=== PATIENT | female | born 1950 | race Caucasian/White ===

== ENCOUNTER 2016-09-26 11:49 | Emergency (ER) | payer MEDICARE | END 2016-09-26 15:30 | disposition home or self-care (01) | LOC: D.ER 11:49 | DX: T84.89XA Other specified complication of internal orthopedic prosthetic devices, implants and grafts, initial encounter (principal); M06.9 Rheumatoid arthritis, unspecified ==

== ENCOUNTER 2016-10-17 18:12 | Emergency (ER) | payer MEDICARE ==
[2016-10-17 20:00] LABS: BASOPHILS 0.2 % (0-2); EOSINOPHILS 0.7 % (0-7); HEMATOCRIT 36.4 % (36.0-48.0); HEMOGLOBIN 11.6 g/dL (12-16); IMMATURE GRANULOCYTES 0.5 % (0-5); LYMPHOCYTES 38.7 % (15-50); MCH 30.7 pg (26.0-34.0); MCHC 31.9 g/dL (31.0-37.0); MCV 96.3 fL (80.0-100.0); MEAN PLATELET VOLUME 10.1 fL (7.4-10.4); MONOCYTES 8.2 % (2-11); NEUTROPHILS 51.7 % (40-80); PLATELET COUNT 147 10x3/uL (130-400); RBC 3.78 10x6/uL (4.00-5.40); RDW 16.2 % (11.5-14.5); WBC 4.3 10x3/uL (4.8-10.8)
[2016-10-17 20:18] LABS: ALBUMIN 3.9 g/dL (3.4-5.0); ANION GAP 12.9 mmol/L (8-16); BILIRUBIN - TOTAL 0.8 mg/dL (0.2-1.3); CALCIUM 8.8 mg/dL (8.5-10.1); CARBON DIOXIDE 23.9 mmol/L (21.0-32.0); CREATININE - SERUM 0.9 mg/dL (0.6-1.3); POTASSIUM - SERUM 3.8 mmol/L (3.5-5.1); PROTEIN - SERUM 6.8 g/dL (6.4-8.2)
== END 2016-10-17 21:24 | disposition home or self-care (01) ==
LOC: D.ER 18:12
PROVIDERS: Physician Assistant Medical
DX: E11.649 Type 2 diabetes mellitus with hypoglycemia without coma (principal); F17.200 Nicotine dependence, unspecified, uncomplicated; J45.909 Unspecified asthma, uncomplicated; M06.9 Rheumatoid arthritis, unspecified

== ENCOUNTER 2017-03-19 14:05 | Emergency (ER) | payer MEDICARE, MEDICAID ==
[2017-03-19 14:55] LABS: BASOPHILS 0.2 % (0-2); EOSINOPHILS 0.4 % (0-7); HEMATOCRIT 37.3 % (36.0-48.0); IMMATURE GRANULOCYTES 0.4 % (0-5); LYMPHOCYTES 33.3 % (15-50); MCHC 32.2 g/dL (31.0-37.0); MCV 96.4 fL (80.0-100.0); MEAN PLATELET VOLUME 10.8 fL (7.4-10.4); MONOCYTES 7.2 % (2-11); NEUTROPHILS 58.5 % (40-80); PLATELET COUNT 131 10x3/uL (130-400); RBC 3.87 10x6/uL (4.00-5.40); RDW 14.1 % (11.5-14.5)
[2017-03-19 15:12] LABS: ALBUMIN 3.8 g/dL (3.4-5.0); ANION GAP 16.7 mmol/L (8-16); BILIRUBIN - TOTAL 0.58 mg/dL (0.2-1.3); CALCIUM 8.8 mg/dL (8.5-10.1); CARBON DIOXIDE 23.8 mmol/L (21.0-32.0); CREATININE - SERUM 0.9 mg/dL (0.6-1.3); MAGNESIUM - SERUM 2.1 mg/dL (1.8-2.4); POTASSIUM - SERUM 4.5 mmol/L (3.5-5.1); PROTEIN - SERUM 7.5 g/dL (6.4-8.2)
== END 2017-03-19 16:29 | disposition home or self-care (01) ==
LOC: D.ER 14:05
PROVIDERS: Family Medicine
DX: R42 Dizziness and giddiness (principal); J01.90 Acute sinusitis, unspecified; I10 Essential (primary) hypertension

== ENCOUNTER 2017-04-22 13:00 | Emergency (ER) | payer MEDICARE ==
[2017-04-22 16:02] LABS: BASOPHILS 0.2 % (0-2); EOSINOPHILS 1.2 % (0-7); HEMATOCRIT 37.7 % (36.0-48.0); IMMATURE GRANULOCYTES 0.2 % (0-5); LYMPHOCYTES 31.6 % (15-50); MCH 30.9 pg (26.0-34.0); MCHC 31.8 g/dL (31.0-37.0); MCV 97.2 fL (80.0-100.0); MEAN PLATELET VOLUME 10.6 fL (7.4-10.4); MONOCYTES 8.3 % (2-11); NEUTROPHILS 58.5 % (40-80); PLATELET COUNT 105 10x3/uL (130-400); RBC 3.88 10x6/uL (4.00-5.40); RDW 14.1 % (11.5-14.5); WBC 4.3 10x3/uL (4.8-10.8)
[2017-04-22 16:07] LABS: ALBUMIN 3.9 g/dL (3.4-5.0); ALKALINE PHOSPHATASE 59 U/L (46-116); ALT (SGPT) 27 U/L (10-68); BILIRUBIN - TOTAL 0.45 mg/dL (0.2-1.3); CALC OSMOLALITY 280 mosm/kg (275-300); CALCIUM 9.5 mg/dL (8.5-10.1); CARBON DIOXIDE 25.6 mmol/L (21.0-32.0); CHLORIDE - SERUM 103 mmol/L (98-107); CREATININE - SERUM 0.9 mg/dL (0.6-1.3); GLUCOSE 95 mg/dL (74-106); POTASSIUM - SERUM 4.6 mmol/L (3.5-5.1); PROTEIN - SERUM 7.5 g/dL (6.4-8.2); SODIUM 140 mmol/L (136-145); UREA NITROGEN 17 mg/dL (7-18); eGFR NON AFRICAN AMERICAN 67 mL/min (90-120)
[2017-04-22 16:15] LABS: CREATINE KINASE 98 UL (21-215); MAGNESIUM - SERUM 2.9 mg/dL (1.8-2.4); PRO BNP 39 pg/mL (0-125)
[2017-04-22 16:16] LABS: TROPONIN-I < 0.017 ng/mL (0.000-0.060)
== END 2017-04-22 16:25 | disposition home or self-care (01) ==
LOC: D.ER 13:00
PROVIDERS: Emergency Medicine
DX: R55 Syncope and collapse (principal); I10 Essential (primary) hypertension

== ENCOUNTER 2017-08-03 20:11 | Emergency (ER) | payer MEDICARE | END 2017-08-04 01:43 | disposition home or self-care (01) | LOC: D.ER 20:11 | DX: M54.2 Cervicalgia (principal); I10 Essential (primary) hypertension ==

== ENCOUNTER 2017-09-22 16:19 | Emergency (ER) | payer MEDICARE ==
[~2017-09-22] VITALS: Ht 162.6 cm; Wt 79.1 kg
[2017-09-22 16:48] VITALS: Ht 162.6 cm; Wt 79.1 kg
[2017-09-22] MEDS ORDERED: PREDNISONE1 MG PO (16:50)
[2017-09-22] MEDS ORDERED: NORVASC10 MG PO (16:51)
[2017-09-22] MEDS ORDERED: FOLIC ACID1 MG PO (16:51)
[2017-09-22] MEDS ORDERED: PLAQUENIL200 MG PO (16:52)
[2017-09-22] MEDS ORDERED: PRINIVIL20 MG PO (16:53)
[2017-09-22] MEDS ORDERED: IPRAT-ALBUT 0.5-3 ML UPD (16:53)
[2017-09-22] MEDS ORDERED: VENTOLIN HFA18 GM INH (16:56)
[2017-09-22] MEDS ORDERED: METHOTREXATE2.5 MG (16:56)
[2017-09-22 19:19] LABS: BASOPHILS 0.4 % (0-2); EOSINOPHILS 0.8 % (0-7); HEMATOCRIT 37.4 % (36.0-48.0); IMMATURE GRANULOCYTES 0.6 % (0-5); LYMPHOCYTES 29.7 % (15-50); MCH 29.2 pg (26.0-34.0); MCHC 32.1 g/dL (31.0-37.0); MEAN PLATELET VOLUME 10.6 fL (7.4-10.4); NEUTROPHILS 57.5 % (40-80); RBC 4.11 10x6/uL (4.00-5.40); RDW 14.6 % (11.5-14.5); WBC 5.2 10x3/uL (4.8-10.8)
[2017-09-22 19:25] LABS: PLATELET COUNT 229 10x3/uL (130-400)
[2017-09-22 19:27] LABS: ALBUMIN 3.7 g/dL (3.4-5.0); ANION GAP 13.5 mmol/L (8-16); BILIRUBIN - TOTAL 0.56 mg/dL (0.2-1.3); CALCIUM 9.6 mg/dL (8.5-10.1); CARBON DIOXIDE 26.9 mmol/L (21.0-32.0); MAGNESIUM - SERUM 2.4 mg/dL (1.8-2.4); POTASSIUM - SERUM 3.4 mmol/L (3.5-5.1); PROTEIN - SERUM 8.2 g/dL (6.4-8.2)
[2017-09-22 19:48] LABS: UDS - AMPHET NEGATIVE QUAL (NEGATIVE); UDS - BARB NEGATIVE QUAL (NEGATIVE); UDS - BENZO NEGATIVE QUAL (NEGATIVE); UDS - COCAINE NEGATIVE QUAL (NEGATIVE); UDS - OPIATE POSITIVE QUAL (NEGATIVE); UDS - PCP NEGATIVE QUAL (NEGATIVE); UDS - THC NEGATIVE QUAL (NEGATIVE)
[2017-09-22 20:15] LABS: APPEARANCE CLEAR (CLEAR); BILIRUBIN NEGATIVE (NEGATIVE); COLOR YELLOW (YELLOW); GLUCOSE NEGATIVE (NEGATIVE); KETONE NEGATIVE (NEGATIVE); NITRITE NEGATIVE (NEGATIVE); PROTEIN NEGATIVE (NEGATIVE); UROBILINOGEN NORMAL (NORMAL)
[2017-09-23 05:01] VITALS: BP 126/79
== END 2017-09-22 20:50 | disposition home or self-care (01) ==
LOC: D.ER 16:19
PROVIDERS: Family Medicine
DX: R53.83 Other fatigue (principal); I10 Essential (primary) hypertension

== ENCOUNTER 2017-12-25 19:51 | Emergency (ER) | payer MEDICARE ==
[~2017-12-25] VITALS: Ht 162.6 cm; Wt 72.7 kg
[~2017-12-25 19:51] MED LIST: FOLIC ACID1 MG PO; IPRAT-ALBUT 0.5-3 ML UPD; METHOTREXATE2.5 MG; NORVASC10 MG PO; PLAQUENIL200 MG PO; PREDNISONE1 MG PO; PRINIVIL20 MG PO; VENTOLIN HFA18 GM INH
[2017-12-25 19:53] VITALS: Ht 162.6 cm; Wt 72.7 kg
[2017-12-25 21:46] LABS: ALBUMIN 3.6 g/dL (3.4-5.0); ALKALINE PHOSPHATASE 68 U/L (46-116); ALT (SGPT) 25 U/L (10-68); BILIRUBIN - TOTAL 0.62 mg/dL (0.2-1.3); CALC OSMOLALITY 278 mosm/kg (275-300); CALCIUM 8.6 mg/dL (8.5-10.1); CARBON DIOXIDE 21.7 mmol/L (21.0-32.0); CHLORIDE - SERUM 104 mmol/L (98-107); CREATININE - SERUM 1.1 mg/dL (0.6-1.3); GLUCOSE 91 mg/dL (74-106); POTASSIUM - SERUM 3.8 mmol/L (3.5-5.1); PROTEIN - SERUM 6.8 g/dL (6.4-8.2); SODIUM 140 mmol/L (136-145); UREA NITROGEN 12 mg/dL (7-18); eGFR NON AFRICAN AMERICAN 53 mL/min (90-120)
[2017-12-25 22:02] LABS: BASOPHILS 0.2 % (0-2); EOSINOPHILS 0.5 % (0-7); HEMATOCRIT 37.8 % (36.0-48.0); HEMOGLOBIN 11.8 g/dL (12-16); IMMATURE GRANULOCYTES 0.3 % (0-5); LYMPHOCYTES 22.1 % (15-50); MCH 30.2 pg (26.0-34.0); MCHC 31.2 g/dL (31.0-37.0); MCV 96.7 fL (80.0-100.0); MEAN PLATELET VOLUME 10.6 fL (7.4-10.4); MONOCYTES 6.2 % (2-11); NEUTROPHILS 70.7 % (40-80); PLATELET COUNT 134 10x3/uL (130-400); RBC 3.91 10x6/uL (4.00-5.40); RDW 16.1 % (11.5-14.5); WBC 9.7 10x3/uL (4.8-10.8)
[2017-12-25 22:03] LABS: CKMB 1.7 U/L (0.0-3.6); CREATINE KINASE 336 UL (21-215); TROPONIN-I 0.028 ng/mL (0.000-0.060)
[2017-12-26 03:44] VITALS: BP 145/97
== END 2017-12-26 03:35 | disposition other institution (70) ==
LOC: D.ER 19:51
PROVIDERS: Family Medicine
DX: G40.909 Epilepsy, unspecified, not intractable, without status epilepticus (principal); I10 Essential (primary) hypertension

== ENCOUNTER 2020-08-28 12:32 | Inpatient (IN) | payer MEDICARE ==
[~2020-08-28] VITALS: Ht 162.6 cm; Wt 87.1 kg
[2020-08-28 13:04] LABS: BASOPHILS 1.3 % (0-2); EOSINOPHILS 0.8 % (0-7); HEMATOCRIT 36.3 % (36.0-48.0); HEMOGLOBIN 11.5 g/dL (12-16); LYMPHOCYTES 29.5 % (15-50); MCH 28.6 pg (26.0-34.0); MCHC 31.7 g/dL (31.0-37.0); MCV 90.2 fL (80.0-100.0); MEAN PLATELET VOLUME 8.4 fL (7.4-10.4); MONOCYTES 6.5 % (2-11); NEUTROPHILS 61.9 % (40-80); RBC 4.03 10x6/uL (4.00-5.40); RDW 15.7 % (11.5-14.5); WBC 5.1 10x3/uL (4.8-10.8)
[2020-08-28 13:05] LABS: PLATELET COUNT 167 10x3/uL (130-400)
[2020-08-28 13:09] LABS: CALC OSMOLALITY 283 mosm/kg (275-300); CALCIUM 8.6 mg/dL (8.5-10.1); CARBON DIOXIDE 27.1 mmol/L (21.0-32.0); CHLORIDE - SERUM 106 mmol/L (98-107); CREATININE - SERUM 0.9 mg/dL (0.6-1.3); GLUCOSE 111 mg/dL (74-106); POTASSIUM - SERUM 3.7 mmol/L (3.5-5.1); SODIUM 142 mmol/L (136-145); UREA NITROGEN 12 mg/dL (7-18); eGFR NON AFRICAN AMERICAN 66 mL/min (90-120)
[2020-08-28 13:14] LABS: APTT 34.5 SECONDS (22.8-39.4); INR 1.07 (0.85-1.17); PROTIME 12.9 SECONDS (11.6-15.0)
[2020-08-28 13:26] LABS: ALBUMIN 3.5 g/dL (3.4-5.0); ALKALINE PHOSPHATASE 74 U/L (30-120); ALT (SGPT) 25 U/L (10-68); BILIRUBIN - TOTAL 0.49 mg/dL (0.2-1.3); CKMB 0.5 U/L (0.0-3.6); CREATINE KINASE 159 UL (21-215); MAGNESIUM - SERUM 2.2 mg/dL (1.8-2.4); TROPONIN-I < 0.017 ng/mL (0.000-0.060)
[2020-08-28 15:29] VITALS: BP 159/70
[2020-08-28 17:15] LABS: CKMB 0.5 U/L (0.0-3.6); CREATINE KINASE 155 UL (21-215)
[2020-08-28 17:16] LABS: TROPONIN-I < 0.017 ng/mL (0.000-0.060)
[2020-08-28] MEDS ORDERED: KEPPRA500 MG PO (17:49)
[2020-08-28] MEDS ORDERED: LIPITOR40 MG PO (17:50)
[2020-08-28] MEDS ORDERED: PREDNISONE5 MG PO (17:52)
--- NOTE | 2020-08-28 18:50 | NUR ---
PERICARE AND DIAPER CHANGE PERFORMED AT THIS TIME.
[2020-08-28 21:49] VITALS: BP 187/64; BMI 33.0
[2020-08-29] VITALS: BP 161/79
[2020-08-29 00:54] LABS: CKMB 0.5 U/L (0.0-3.6); CREATINE KINASE 155 UL (21-215)
[2020-08-29 00:55] LABS: TROPONIN-I < 0.017 ng/mL (0.000-0.060)
[2020-08-29 07:34] LABS: BASOPHILS 1.3 % (0-2); EOSINOPHILS 2.2 % (0-7); HEMATOCRIT 35.4 % (36.0-48.0); HEMOGLOBIN 11.3 g/dL (12-16); LYMPHOCYTES 40.1 % (15-50); MCH 28.8 pg (26.0-34.0); MEAN PLATELET VOLUME 7.5 fL (7.4-10.4); MONOCYTES 9.5 % (2-11); NEUTROPHILS 46.9 % (40-80); RBC 3.94 10x6/uL (4.00-5.40); RDW 15.8 % (11.5-14.5); WBC 5.5 10x3/uL (4.8-10.8)
[2020-08-29 07:36] LABS: PLATELET COUNT 212 10x3/uL (130-400)
[2020-08-29 07:52] VITALS: BP 142/67
--- NOTE | 2020-08-29 09:10 | NUR ---
AM MEDS GIVEN AT THIS TIME WITH A LITTLE BIT OF WATER. ALSO GAVE 650MG OF TYLENOL FOR PAIN LEVEL OF 5/10. PT TOOK OWN [facility] MEDICATIONS STATES TAHT SHE CANNOT MISS A DOSE. PT A/O X4, RESP EVEN AND NONLABORED ON RA. SR-84 ON TELE. PT REFUSES TO WEAR SCDS, RATIONAL FOR SCDS EXPLAINED TO PT. ALL NEEDS MET, CALL LIGHT IN REACH, WILL CONTINUE PLAN OF CARE.
[2020-08-29 09:12] VITALS: BMI 32.9
[2020-08-29 09:52] LABS: CKMB 0.4 U/L (0.0-3.6); CREATINE KINASE 122 UL (21-215)
[2020-08-29 09:54] LABS: TROPONIN-I < 0.017 ng/mL (0.000-0.060)
[2020-08-29 10:08] LABS: ALBUMIN 3.3 g/dL (3.4-5.0); ALKALINE PHOSPHATASE 66 U/L (30-120); ALT (SGPT) 22 U/L (10-68); BILIRUBIN - TOTAL 0.65 mg/dL (0.2-1.3); CALC OSMOLALITY 279 mosm/kg (275-300); CALCIUM 8.4 mg/dL (8.5-10.1); CARBON DIOXIDE 25.4 mmol/L (21.0-32.0); CHLORIDE - SERUM 105 mmol/L (98-107); CREATININE - SERUM 0.8 mg/dL (0.6-1.3); GLUCOSE 77 mg/dL (74-106); MAGNESIUM - SERUM 2.1 mg/dL (1.8-2.4); POTASSIUM - SERUM 3.3 mmol/L (3.5-5.1); PROTEIN - SERUM 6.4 g/dL (6.4-8.2); SODIUM 141 mmol/L (136-145); UREA NITROGEN 13 mg/dL (7-18); eGFR NON AFRICAN AMERICAN 75 mL/min (90-120)
[2020-08-29 10:54] VITALS: Ht 162.6 cm; Wt 87.1 kg
[2020-08-29 11:11] VITALS: BP 114/69
--- NOTE | 2020-08-29 15:13 | NUR ---
PT RESTING COMFORTABLY IN BED WITH EYES CLOSED, NAD NOTED. CALL LIGHT IN REACH.
[2020-08-29 15:47] VITALS: BP 127/61
[2020-08-29 20:00] VITALS: BP 120/52
[2020-08-30 00:23] VITALS: BP 145/60
[2020-08-30 04:09] VITALS: BP 122/51
[2020-08-30 06:07] LABS: EOSINOPHILS 2.5 % (0-7); HEMATOCRIT 34.2 % (36.0-48.0); LYMPHOCYTES 44.5 % (15-50); MCH 28.9 pg (26.0-34.0); MCHC 32.2 g/dL (31.0-37.0); MCV 89.9 fL (80.0-100.0); MEAN PLATELET VOLUME 8.4 fL (7.4-10.4); MONOCYTES 10.3 % (2-11); NEUTROPHILS 41.7 % (40-80); PLATELET COUNT 202 10x3/uL (130-400); RBC 3.81 10x6/uL (4.00-5.40); RDW 16.1 % (11.5-14.5); WBC 4.6 10x3/uL (4.8-10.8)
[2020-08-30 06:37] LABS: ALBUMIN 3.2 g/dL (3.4-5.0); ANION GAP 11.8 mmol/L (8-16); BILIRUBIN - TOTAL 0.59 mg/dL (0.2-1.3); CALCIUM 8.5 mg/dL (8.5-10.1); CARBON DIOXIDE 25.3 mmol/L (21.0-32.0); MAGNESIUM - SERUM 2.3 mg/dL (1.8-2.4); POTASSIUM - SERUM 4.1 mmol/L (3.5-5.1); PROTEIN - SERUM 6.4 g/dL (6.4-8.2)
[2020-08-30 08:13] VITALS: BP 98/58
--- NOTE | 2020-08-30 08:50 | NUR ---
AM MEDS GIVEN AT THIS TIME. ALSO GAVE 325MG OF TYLENOL FOR PAIN LEVEL OF 4/10. HELPED PT CLEAN UP FROM INCONT EPISODE. COMPLETE LINEN CHANGE. ALL NEEDS MET, CALL LIGHT IN REACH. WILL CONTIUE PLAN OF CARE.
[2020-08-30 11:44] VITALS: BP 115/61
[2020-08-30 16:03] VITALS: BP 99/46
[2020-08-30 19:00] VITALS: BP 116/47
[2020-08-31] VITALS: BP 100/64
[2020-08-31 04:00] VITALS: BP 138/59
[2020-08-31 06:54] LABS: HEMATOCRIT 31.8 % (36.0-48.0); HEMOGLOBIN 10.4 g/dL (12-16); MCH 29.5 pg (26.0-34.0); MCHC 32.8 g/dL (31.0-37.0); MEAN PLATELET VOLUME 8.2 fL (7.4-10.4); PLATELET COUNT 193 10x3/uL (130-400); RBC 3.53 10x6/uL (4.00-5.40); RDW 15.8 % (11.5-14.5); WBC 4.4 10x3/uL (4.8-10.8)
[2020-08-31 07:22] LABS: ALBUMIN 3.2 g/dL (3.4-5.0); ANION GAP 12.1 mmol/L (8-16); BILIRUBIN - TOTAL 0.61 mg/dL (0.2-1.3); CALCIUM 8.5 mg/dL (8.5-10.1); CARBON DIOXIDE 24.9 mmol/L (21.0-32.0); CREATININE - SERUM 0.9 mg/dL (0.6-1.3); MAGNESIUM - SERUM 2.4 mg/dL (1.8-2.4)
--- NOTE | 2020-08-31 07:56 | NUR ---
PT LYING IN BED WITH HOB RAISED, EYES CLOSED, RR EVEN NON LABORED ON ROOM AIR. PT AWAKENS EASILY, NO PAIN OR NEEDS VOICED AT THIS TIME. CLWR.
[2020-08-31 08:00] VITALS: BP 116/49
--- NOTE | 2020-08-31 08:51 | NUR ---
AM MEDS GIVEN. PT STATES TO HAVE TAKEN HER HOME [facility] AT 0600 THIS MORNING, PT AWAKE AND ALERT, NO NEEDS VOICED ATTHIS TIME. CLWR.
[2020-08-31 11:00] VITALS: BP 120/67
[2020-08-31 13:24] LABS: ANISOCYTOSIS OCC; EOSINOPHILS 1 % (0-7); LYMPHOCYTES 39 % (15-50); MONOCYTES 24 % (2-11); NEUTROPHILS 36 % (40-80); PLATELET ESTIMATE NORMAL
--- NOTE | 2020-08-31 14:45 | NUR ---
PT BROUGHT BACK FROM STRESS TEST AND WAS NOT ABLE TO COMPLETE TEST D/T IV NOT FUCTIONING, MULTIPLE ATTEMPTS MADE FOR NEW IV PLACEMENT, NO SUCCESS. IV TO RIGHT AC D/C'D, CATHETER INTACT, DRESSING APPLIED.
--- NOTE | 2020-08-31 15:02 | NUR ---
PHILLIP SAWYER WITH NURSE AT THIS TIME REGARDING PLAN OF CARE. SANDWICH TRAY GIVEN AT THIS TIME.
[2020-08-31] MEDS ORDERED: LISINOPRIL10 MG PO (15:49)
[2020-08-31] MEDS ORDERED: NORVASC10 MG PO (15:49)
--- NOTE | 2020-08-31 15:53 | NUR ---
SPOKE WITH PT REGARDING D/C PLAN. PT STATES HER TRANSPORTATION HOME WILL ARRIVE AROUND 6PM THIS EVENING. PT DENIES ANY QUESTIONS AT THIS TIME. PT SITTING IN CHAIR, RR EVEN NON LABORED. NO NEEDS VOICED. CLWR.
--- NOTE | 2020-08-31 16:33 | NUR ---
DISCHARGE INSTRUCTIONS GIVEN TO PT AT THIS TIME INCLUDING MEDS AND FOLLOWUP APPOINTMENTS. PT STATES UNDERSTANDING AND DENIES ANY QUESTIONS. PT STATES SHE WILL CALL HER FAMILY FOR RIDE HOME. TELE D/C'D AND WILL TAKE BACK TO ICU. NO NEEDS VOICED. CLWR.
--- NOTE | 2020-08-31 16:50 | NUR ---
PT WHEELED TO PRIVATE VEHICLE AT THIS TIME. ALL BELONGINGS WITH PT TIME OF D/C. NO DISTRESS NOTED.
== END 2020-08-31 17:22 | disposition home or self-care (01) | DRG 311 ==
LOC: D.ER 12:32 → D.M2 17:11 → OBSVTIME 17:11 → D.M2 08-30 08:39
PROVIDERS: Emergency Medicine; Family Medicine; ADMIT Family Medicine Adult Medicine; ATTEND Family Medicine Adult Medicine
DX: I20.0 Unstable angina (principal); G40.909 Epilepsy, unspecified, not intractable, without status epilepticus; I10 Essential (primary) hypertension; M06.9 Rheumatoid arthritis, unspecified; E66.9 Obesity, unspecified; M32.9 Systemic lupus erythematosus, unspecified; Z68.33 Body mass index [BMI] 33.0-33.9, adult

== ENCOUNTER → 2020-09-09 09:52 | Outpatient (CLI) | payer MEDICARE ==
[2020-08-29 10:54] VITALS: BMI 32.9
[~2020-09-09 09:52] MED LIST changes: +KEPPRA500 MG PO; +LIPITOR40 MG PO; +LISINOPRIL10 MG PO; +MECLIZINE HCL25 MG PO; +PREDNISONE5 MG PO
== END | disposition home or self-care (01) ==
LOC: D.HCCARDIO 09:52
PROVIDERS: ATTEND Internal Medicine Interventional Cardiology
DX: R07.9 Chest pain, unspecified (principal)

== ENCOUNTER 2020-09-11 14:45 | Emergency (ER) | payer MEDICARE ==
[~2020-09-11] VITALS: Ht 162.6 cm; Wt 88.6 kg
[~2020-09-11 14:45] MED LIST changes: -MECLIZINE HCL25 MG PO
[2020-09-11 14:51] VITALS: Ht 162.6 cm; Wt 88.6 kg
[2020-09-11] MEDS ORDERED: MECLIZINE HCL25 MG PO (14:57)
[2020-09-11 15:32] LABS: BASOPHILS 1.3 % (0-2); EOSINOPHILS 0.7 % (0-7); HEMATOCRIT 34.6 % (36.0-48.0); LYMPHOCYTES 30.4 % (15-50); MCH 28.5 pg (26.0-34.0); MCHC 31.6 g/dL (31.0-37.0); MEAN PLATELET VOLUME 8.8 fL (7.4-10.4); MONOCYTES 10.1 % (2-11); NEUTROPHILS 57.5 % (40-80); PLATELET COUNT 137 10x3/uL (130-400); RBC 3.85 10x6/uL (4.00-5.40); RDW 15.8 % (11.5-14.5); WBC 6.3 10x3/uL (4.8-10.8)
[2020-09-11 15:41] LABS: APTT 35.2 SECONDS (22.8-39.4); INR 1.06 (0.85-1.17); PROTIME 12.8 SECONDS (11.6-15.0)
[2020-09-11 15:47] LABS: CALC OSMOLALITY 280 mosm/kg (275-300); CALCIUM 8.7 mg/dL (8.5-10.1); CARBON DIOXIDE 24.7 mmol/L (21.0-32.0); CHLORIDE - SERUM 106 mmol/L (98-107); CREATININE - SERUM 0.8 mg/dL (0.6-1.3); GLUCOSE 106 mg/dL (74-106); POTASSIUM - SERUM 3.5 mmol/L (3.5-5.1); SODIUM 141 mmol/L (136-145); UREA NITROGEN 13 mg/dL (7-18); eGFR NON AFRICAN AMERICAN 75 mL/min (90-120)
[2020-09-11 15:57] LABS: ALBUMIN 3.6 g/dL (3.4-5.0); ALKALINE PHOSPHATASE 73 U/L (30-120); ALT (SGPT) 22 U/L (10-68); BILIRUBIN - TOTAL 0.49 mg/dL (0.2-1.3); CKMB 0.5 U/L (0.0-3.6); CREATINE KINASE 153 UL (21-215); PROTEIN - SERUM 7.2 g/dL (6.4-8.2)
[2020-09-11 16:03] LABS: TROPONIN-I < 0.017 ng/mL (0.000-0.060)
[2020-09-11 16:48] VITALS: BP 132/68
== END 2020-09-11 16:49 | disposition home or self-care (01) ==
LOC: D.ER 14:45
PROVIDERS: Emergency Medicine
DX: I20.9 Angina pectoris, unspecified (principal); R07.9 Chest pain, unspecified; I10 Essential (primary) hypertension; J45.909 Unspecified asthma, uncomplicated